=== PATIENT | male | born 1965 | race Caucasian/White ===

== ENCOUNTER 2022-07-29 15:47 | Outpatient (REF) | payer OTHER, SELFPAY ==
--- NOTE | ~2022-07-29 | XR_ITS ---
EXAMINATION: XR CHEST CLINICAL INFORMATION: Wall COMPARISON: Previous chest x-ray from 2016 TECHNIQUE: 2 views of the chest were obtained. FINDINGS: No significant abnormality is noted involving the heart, lungs, mediastinum, bony thorax or soft tissues. XR/XR chest 2V IMPRESSION: Unremarkable examination.
== END 2022-07-29 15:48 | disposition home or self-care (01) ==
LOC: HO.XRAY 15:47
PROVIDERS: PCP Nurse Practitioner Family; Visit Provider Nurse Practitioner Family
DX: R09.89 Other specified symptoms and signs involving the circulatory and respiratory systems (principal)
CPT/HCPCS: 71046

== ENCOUNTER 2025-05-19 07:21 | Day surgery (SDC) | payer BC, SELFPAY ==
--- OUTSIDE RECORDS SUMMARY | 2025-04-10 16:04 | XMS_ITS | Patient Health Record ---
Author Organization [facility] [place] Address [address] [place] [address] Care Team Providers Care Four H Club Agent Name Role Phone Bharti Merrill NP Primary Care Provider Brock Lopez Unavailable [phone] Reason For Referral No Information Medications Medication SIG (Take, Route, Fr equency, Duration) Notes Start Date End Date Status Medical From: . . . Work today, 03/30/18 03/30/2018 Active Social History Tobacco Use: Social History Observation Description Date Details (start date - stop date) Former Smoker NA - NA Tobacco Use/Smoking Question Answer Notes Are you a: former smoker When did you start smoking? smoked for 20 years Additional Findings: Tobacco User Heavy cigarett e smoker (20-39 cigs/day) Additional Findings: Tobacco Non-User Ex-heavy c igarette smoker (20-30/day) Alcohol Screen Question Answer Notes Did you have a drink containing alcohol in the p ast year? Yes Points 0 Interpretation Negative Tobacco use other than smoking: Question Answer Notes Are you an other tobacco user? No Problems Problem Type SNOMED Code ICD Code Onset Dates Problem Status W/U Status Risk Notes Problem Acquired hallux valgus (60783837) Hallux valgus (acquired), right foot (M20.11) Active confirmed Plan Of Treatment Pending Test Test Name Order Date , R2333-[id number]/INJECT, JOINT/BURSA 0 03/30/2018 Insurance Providers Payer Name Payer Address Payer Phone Subscriber Number Group Number Insured Name Patient Relationship to Insured Coverage Start Date Coverage End Date [facility] [employer] [address] [place] [address] [id number] Adarsh Marrero Self - patient is the insured Medical (General) History Surgical History Surgery Date(Month/Year) gall bladder 2013 Hospitalization History Reason Date(Month/Year) Josefina Ashford for kidney stones 8
--- OUTSIDE RECORDS SUMMARY | 2025-04-10 16:04 | XMS_ITS | Patient Health Record ---
Author Organization [facility] Address [address] [place] [address] Care Team Providers Care Ms Sql Server Developer Name Role Phone BARBARA MARTINS PA-C Primary Care Provider Bernardo Dickinson Jr Unavailable Allergies No Known Allergies Reason For Referral Referring Provider First Name Clifton Referring Provider Last Name Griselda Referring Provider Speciality Internal M edicine Referred Organization [facility] Referred Provider Bernardo Mena Jr Referred Address [address] [facility] [address],[place], [place],[address], Referred Provider Specialty Gastroentero logy General Notes Claudia Ford 2024 03:44:40 PM > requested an hmo blue referral from Dr Ibanez office for visit with Dr Mena on 04-03-25 for dx screening colon [phone], Claudia Ford 03/06/2025 01:36:49 PM >SPOKE WITH PT AND NOTIFIED HIM THAT HE NEEDS TO GET A NEW INSURANCE REFERRAL. THE PATIENT STATED HE NOW SEES BARBARA MARTINS HIS PCP Referral Priority Routine Medications Medication SIG (Take, Route, Frequency, Duration) Notes Start Date End Date Status Clopidogrel Bisulfate 75 MG TAKE ONE TAB LET BY MOUTH EVERY DAY Oral for 21 Days Active Aspir-Low 81 MG 1 tablet Orally Once a day Active Simvastatin 40 MG TAKE 1 TABLET BY LEISA TH NIGHTLY AT BEDTIME Oral for 60 Days Active Aspirin 325 MG TAKE ONE TABLET BY M OUTH EVERY DAY Oral for 30 Days Active Halobetasol Propionate 0.05 % APPLY THIN LAYER TWICE A DAY TO PSORIASIS ON LEGS FOR 2 WEEKS ON, 1 WEEK OFF; REPEAT NEEDED; USE IN CONJUNCTION WITH CALCIPOTRIENE. External for 30 Days Active Atorvastatin Calcium 40 MG Oral for 30 Days Active Metoprolol Tartrate 25 MG TAKE ONE TABLE T BY MOUTH TWICE A DAY Oral for 30 Days Active Calcipotriene 0.005 % APPLY TWO TIMES A DAY TO AFFECTED AREAS OF GROIN AND EXTREMITIES; USE IN CONJUNCTION WITH HALOBETASOL AND DURING BREAKS FROM HALOBETASOL External for 30 Days Active Magnesium 300 MG 1 capsule with a dominick l Orally Once a day for 30 day(s) Active Vitamin B12 500 MCG 1 tablet Orally Once a day for 30 day(s) Active Meloxicam 7.5 MG Oral for 30 Days Active Diclofenac Sodium 50 MG TAKE ONE TABLET BY MOUTH TWICE A DAY NEEDED FOR ARTHRITIC PAIN Oral for 15 Days Active Cholesterol Fighter Active Immunizations Vaccine Route Administration Date Status Comme nts Influenza Unknown 12/22/2019 Refused Influenza Unknown 04/03/2025 Refused Social History Tobacco Use: Social History Observation Description Date Details (start date - stop date) Never Smoker NA - NA Tobacco Use/Smoking Question Answer Notes Patient is a nonsmoker Alcohol Screen Question Answer Notes Did you have a drink contain ing alcohol in the past year? Yes How often did you have a dri nk containing alcohol in the past year? 2 to 3 times a week (3 points) How many drinks did you have on a typical day when you were drinking in the past year? 3 or 4 drinks (1 point) How often did you have 6 or more drinks on one occasion in the past year? Less than monthly (1 point) Points 5 Interpretation Positive Problems Problem Type SNOMED Code ICD Code Onset Dates Problem Status W/U Status Risk Notes Problem 050738657 Colon cancer screening (Z12.11) Active confirmed Problem 441615933 Encounter for other preprocedural examination (Z01.818) Active confirmed Problem 547816534 Long-term use of aspirin therapy (Z79.82) Active confirmed Vital Signs Temperature 97.7 degrees Fahrenheit 04/03/2025 Blood pressure diastolic 01 mm Hg 04/03/2025 Height 70 in 04/03/2025 Blood pressure systolic 001 mm Hg 04/03/2025 Weight 194.6 lbs 04/03/2025 BMI 27.92 kg/m2 04/03/2025 Encounters Encounter Location Date Provider Diagnosis [facility] [address] [facility] [address] [place] [address] 04/03/2025 Bernardo Mena Jr Colon cancer screening Z12.11 ; Encounter for other preprocedural examination Z01.818 and Long-term use of aspirin therapy Z79.82 [facility] [address] [place] [address] 02/28/2025 Bernardo Mena Jr Assessments Encounter Date Diagnosis (ICD Code) Assessment Notes Treatment Notes Treatment Clinical Notes Section Notes 04/03/2025 Colon cancer screening (ICD-10 - Z12.11) 04/03/2025 Encounter for other preprocedural examination (ICD-10 - Z01.818) 04/03/2025 Long-term use of aspirin therapy (ICD-10 - Z79.82) Plan Of Treatment Future Test Test Name Order Date COLONOSCOPY 12/22/2019 COLONOSCOPY 04/03/2025 Next Appt Details Provider Name:Bernardo frye Jr, 05/19/2025 09:10:00 AM, [address] [facility] , [place], [place], [phone], Insurance Providers Payer Name Payer Address Payer Phone Subscriber Number Group Number Insured Name Patient Relationship to Insured Coverage Start Date Coverage End Date [facility] [place] [employer] [address] [place] [address] [id number] RAKEL SHAH Self - patient is the insured Medical (General) History Medical History History ICD Code elevated cholesterol stroke small in december 2024 Surgical History Surgery Date(Month/Year) heart monitor 12/20 cholecystectomy
[2025-05-17 16:04] VITALS: BMI 27.7
--- NOTE | 2025-05-18 09:37 | P.CONAN_ITS ---
HPI - Anesthesia Eval Consult details Narrative: 60yo M for Colonoscopy [facility] Past Medical History Medical History (Updated 05/17/25 @ 16:03 by Sarai Wynn, RN) Implantable loop recorder present (03/03/25) History of CVA (cerebrovascular accident) Thoracic aortic aneurysm HLD (hyperlipidemia) Gall stones Back pain Arthritis Aortic regurgitation Surgical History Surgical History (Updated 05/17/25 @ 15:58 by Sarai Wynn, RN) Hx of cholecystectomy History of repair of anterior cruciate ligament of left knee Social History Social History (Updated 05/17/25 @ 16:02 by Sarai Wynn, QASIM) Patient Tobacco Use Status: Former Tobacco user Use of substances other than those prescribed or required for medical reasons: No Meds Allergies Allergy/AdvReac Type Severity Reaction Status Date / Time No Known Allergies (No Known Allergy Unverified 06/14/20 14:45 Allergies*) Home Medications ?Medication ?Instructions ?Recorded ?Confirmed ?Last Taken ?Type aspirin 81 mg tablet 81 mg PO DAILY 05/17/2504/29 Unknown History atorvastatin 40 mg tablet 40 mg PO DAILY 05/17/2504/29 Unknown History calcipotriene 0.005 % topical cream appl topical BID 0 05/17/25 Unknown History diclofenac sodium 3 % topical gel g topical BID Unknown History diclofenac sodium 50 mg 50 mg PO BID PRN arthritis 0 05/17/25 05/17/25 Unknown History tablet,delayed release halobetasol propionate 0.05 % appl topical 05/17/25 Unknown History topical cream Exam Height,Weight and Vital Signs: Height 5 ft 10 in Weight 87.5 kg
--- NOTE | 2025-05-18 09:37 | HO.ANESPROP2 ---
HPI - Anesthesia Eval Consult details Narrative: 60yo M for Colonoscopy [facility] Past Medical History Medical History Implantable loop recorder present (03/03/25) History of CVA (cerebrovascular accident) Thoracic aortic aneurysm HLD (hyperlipidemia) Gall stones Back pain Arthritis Aortic regurgitation Surgical History Surgical History Hx of cholecystectomy History of repair of anterior cruciate ligament of left knee Social History Social History Are you a primary wound care coordinator to a significant other at home: No Do you presently have visiting nurse or other home services: No Patient Tobacco Use Status: Former Tobacco user Use of substances other than those prescribed or required for medical reasons: No Have you been hit, kicked, punched, or otherwise hurt by someone within the past year? If so, by whom?: No Are you DNR?: No Advance Directives: No Advance Directives Information Provided: Yes Poor oral hygiene: No Meds Allergies Allergy/AdvReac Type Severity Reaction Status Date / Time No Known Allergies (No Known Allergy Verified 05/19/25 07:48 Allergies*) Home Medications ?Medication ?Instructions ?Recorded ?Confirmed ?Last Taken ?Type aspirin 81 mg tablet 81 mg PO DAILY 05/17/25 05/17/25 05/12/25 History atorvastatin 40 mg tablet 40 mg PO DAILY 05/17/25 05/17/25 Unknown History calcipotriene 0.005 % topical cream appl topical BID 05/17/25 Unknown History diclofenac sodium 3 % topical gel g topical BID 05/17/25 Unknown History diclofenac sodium 50 mg 50 mg PO BID PRN arthritis 05/17/25 05/17/25 Unknown History tablet,delayed release halobetasol propionate 0.05 % appl topical 05/17/25 05/17/25 Unknown History topical cream Exam Height,Weight and Vital Signs: Height 5 ft 10 in Weight 87.5 kg
[2025-05-19 07:47] VITALS: BMI 27.3
--- NOTE | 2025-05-19 07:58 | HO.ANESPROP2 ---
[facility] Past Medical History Medical History Implantable loop recorder present (03/03/25) History of CVA (cerebrovascular accident) Thoracic aortic aneurysm HLD (hyperlipidemia) Gall stones Back pain Arthritis Aortic regurgitation Functional capacity: independent ambulation Family History Family history of problems with anesthesia: No Surgical History Surgical History Hx of cholecystectomy History of repair of anterior cruciate ligament of left knee History of Problems with Anesthesia: No Social History Social History Are you a primary child care associate teacher to a significant other at home: No Do you presently have visiting nurse or other home services: No Patient Tobacco Use Status: Former Tobacco user Use of substances other than those prescribed or required for medical reasons: No Have you been hit, kicked, punched, or otherwise hurt by someone within the past year? If so, by whom?: No Are you DNR?: No Advance Directives: No Advance Directives Information Provided: Yes Poor oral hygiene: No Meds Allergies Allergy/AdvReac Type Severity Reaction Status Date / Time No Known Allergies (No Known Allergy Verified 05/19/25 07:48 Allergies*) Home Medications ?Medication ?Instructions ?Recorded ?Confirmed ?Last Taken ?Type aspirin 81 mg tablet 81 mg PO DAILY 05/17/25 05/17/25 05/12/25 History atorvastatin 40 mg tablet 40 mg PO DAILY 05/17/25 05/17/25 Unknown History calcipotriene 0.005 % topical cream appl topical BID 05/17/25 Unknown History diclofenac sodium 3 % topical gel g topical BID 05/17/25 Unknown History diclofenac sodium 50 mg 50 mg PO BID PRN arthritis 05/17/25 05/17/25 Unknown History tablet,delayed release halobetasol propionate 0.05 % appl topical 05/17/25 05/17/25 Unknown History topical cream Exam Height,Weight and Vital Signs: Height 5 ft 10 in Weight 86.183 kg Airway Mallampati Class: II TM Dist: >3cm Neck ROM: Full Heart: RRR Lungs: CTA Assessment and Plan Assessment Anesthesia Assessment: Anesthesia Plan Discussed Final Anesthetic Review Family History of Problems with Anesthesia: No History of Problems with Anesthesia: No NPO: Yes ASA Class: III Final Preanesthetic Review: Meds/Allgs Chart Reviewed, Consent Obtained/Reviewed and Anes Risks/Benef Reviewed Patient Risk: Intermediate Procedure Risk: Low Anesthetic Plan Anesthetic Plan: MAC: Disposition: Standard PACU
[2025-05-19 07:59] VITALS: BP 125/87; PULSE 73; RESP 18; TEMP 36.6; O2SAT 98
[2025-05-19] MEDS: Lactated Ringers 1,000 ML 80 ML IVCONT (08:00)
--- NOTE | 2025-05-19 08:41 | MHC.SHP ---
Pre-Procedural Eval Section A - 24 Hr Update-Section A only Date of Service: 05/19/25 The patient is an INPATIENT: No Changes since office visit: No Cold of Flu in the past 2 weeks, No New Medical Problems, No Changes in Medication and No Patient answered all questions The patient has been examined within 24 hours of the surgical procedure. The History & Physical has been completed within 30 days and I have reviewed it.: Yes Section B - Complete if H&P > 30 days Chief Complaint: screening Allergies: Allergies Allergy/AdvReac Type Severity Reaction Status Date / Time No Known Allergies (No Known Allergy Verified 05/19/25 07:48 Allergies*) Plan I have reviewed the history and physical and performed a pertinent physical examination on my patient. No changes have occurred unless specified. Time Spent With Patient Time: Total time managing care of this patient today ____ minutes.
[2025-05-19 09:06] VITALS: BP 108/72; PULSE 82; RESP 16; TEMP 36.6; O2SAT 96
--- NOTE | 2025-05-19 09:11 | PM.OP ---
Brief Operative Note Date of Service: 05/19/25 Pre-op diagnosis: screening Post-op diagnosis: same Procedure: colonoscopy Surgeon: Bernardo Mena MD Anesthesia: MAC Was an Adobe Cq Developer used for this Procedure?: No Estimated blood loss (mL): 0 Pathology: none sent Condition: stable Disposition: PACU
[2025-05-19 09:20] VITALS: BP 118/79; PULSE 65; RESP 16; O2SAT 96
[2025-05-19 09:35] VITALS: BP 115/86; PULSE 69; RESP 16; TEMP 36.2; O2SAT 99
--- NOTE | 2025-05-19 10:50 | OP_ITS ---
DATE OF SERVICE: 05/19/2025 SURGEON: Bernardo Mena MD INDICATIONS: Colon cancer screening. PREOPERATIVE DIAGNOSIS: POSTOPERATIVE DIAGNOSIS: PROCEDURE PERFORMED: Colonoscopy to the terminal ileum. ESTIMATED BLOOD LOSS: COMPLICATIONS: ANESTHESIA: ASSISTANTS: SPECIMENS: MEDICATIONS: Monitored anesthesia care. DESCRIPTION OF PROCEDURE: A history and physical were performed. The risks and benefits of the procedure were explained to the patient and informed consent was obtained. The patient was placed in the left lateral decubitus position. A digital rectal exam was performed and was found to be normal. The Olympus pediatric video colonoscope was introduced into the rectum and advanced to the cecum. The cecum was identified by transillumination, palpation, and identification of ileocecal valve. Examination was performed. The scope was removed. He tolerated the procedure well and was transferred to the recovery room in stable condition. FINDINGS: The terminal ileum was examined and appeared normal. The visualized colonic mucosa was within normal limits without evidence of masses or ulcers. No polyps were identified. Retroflexed examination showed some small internal hemorrhoids. The quality of prep was good. IMPRESSION: Normal colonoscopy. RECOMMENDATIONS: 1. Follow up as needed. 2. Repeat colonoscopy is recommended in 5 years for family history of colon cancer. MD NIMESH Saxena/MELLISSA / [id number]
== END 2025-05-19 10:02 | disposition home or self-care (01) ==
PROVIDERS: Visit Provider Internal Medicine Gastroenterology
PROC: 0DJD8ZZ Inspection of Lower Intestinal Tract, Via Natural or Artificial Opening Endoscopic (ICD-10-PCS; CPT 45378; principal; 2025-05-19 09:10)
DX: Z12.11 Encounter for screening for malignant neoplasm of colon (principal); Z80.0 Family history of malignant neoplasm of digestive organs; Z86.0101 Personal history of adenomatous and serrated colon polyps; K64.8 Other hemorrhoids; E78.00 Pure hypercholesterolemia, unspecified; Z86.73 Personal history of transient ischemic attack (TIA), and cerebral infarction without residual deficits; I71.21 Aneurysm of the ascending aorta, without rupture; Z79.82 Long term (current) use of aspirin; Z79.899 Other long term (current) drug therapy; Z90.49 Acquired absence of other specified parts of digestive tract; Z87.891 Personal history of nicotine dependence; Z98.890 Other specified postprocedural states
CPT/HCPCS: 45378; J2003; J2704

== ENCOUNTER 2025-08-29 06:23 | Outpatient (REF) | payer BC, SELFPAY ==
--- OUTSIDE RECORDS SUMMARY | 2025-08-29 06:30 | XMS_ITS | Encounter Summary ---
Author Organization [facility] Address [address] [facility] [place] [address] Phone Care Team Providers Care Sustainability Coach Name Role Phone Jaspreet Hoover MD Unavailable Candace Dietrich NP Unavailable [phone] Bharti Merrill PELLET PREPARATION OPERATOR Unavailable [phone] Adarsh Ruiz MD Unavailable Bharti Merrill PELLET PREPARATION OPERATOR Primary Care Provider Bernardo Mena MD Unavailable Abby Mcgraw MANAGER ANALYTICAL Primary Care Provider Armida Linares MD Unavailable Valerie Lane PA-C Primary Care Provider Clifton Villalobos MD Unavailable Encounter Details Date Type Department Care Team (Late st Contact Info) Description 02/13/2018 Procedure [facility], Ct Scan - [address] [address] Social History Tobacco Use Types Packs/Day Years Used Date Smoking Tobacco: Former Cigarettes 2 15 0 04/28/1983 - 04/28/1998 Smokeless Tobacco: Never Alcohol Use Standard Drinks/Week Comments Yes 0 (1 standard drink = 0.6 oz pur e alcohol) 24 beers per week at times Sex and Gender Information Value Date Recorded Sex Assigned at Male 02/13/2018 2:37 PM EDT Legal Sex Male 9:41 PM EDT Gender Identity Male 02/13/2018 2:37 PM EDT Sexual Orientation Straight 02/13/2018 2: 37 PM EDT documented as of this encounter Plan of Treatment Upcoming Encounters Date Type Department Care Team (Late st Contact Info) Description 09/06/2025 8:20 AM EST Office Visit [facility] [address] [facility] 3rd Floor, [address] [place] [address] Ej Hopson MD [address] [facility], [address] [address] 12/15/2025 8:00 AM EDT Office Visit [facility] [address] [place] [address] PA-C [address] [place] [address] documented as of this encounter Visit Diagnoses Not on filedocumented in this encounter Additional Health Concerns Assessment Noted Time PHQ-2 Depression Total Score: 0 02/09/20 18 2:28 PM EDT documented as of this encounter Care Teams Sustainability Coach Relationship Specialty Start Date End Date Bharti Merrill NP [address] [place] [address] PCP - General Family Medicine 02/12/18 12/01/23 Abby Mcgraw FNP [address] [facility] [address] [place] [address] PCP - General Nurse Practitioner 12/02/23 11/20/[address] PA-C [address] [place] [address] PCP - General Physician Shop Firer/Fireman 11/21/24 Jaspreet Hoover MD [address] [place] [address] Historical LMR Provider 07/16/17 04/04/20 Candace Dietrich, SYDNIE [address] [facility] [address] [place] [address] Historical LMR Provider 07/16/17 0 Bharti Merrill NP [address] [facility] [address] [place] [address] Historical LMR Provider 07/16/17 04/04/20 Adarsh Ruiz MD [address] [place] [address] Historical LMR Provider 07/16/17 0 Bernardo Mena MD [address] [place] [address] [address] [place] [phone] Internal Medicine 04/05/20 Armida Linares MD [address] [facility] [address] [place] [address] Insurance Assigned Provider 08/06/24 05/06/25 Clifton Villalobos MD [address] [place] [address] Insurance Assigned Provider 05/06/25 documented as of this encounter Additional Source Comments The information contained in this document represents components of the legal health record. It is not the complete legal health record.[facility]
--- OUTSIDE RECORDS SUMMARY | 2025-08-29 06:30 | XMS_ITS | Encounter Summary ---
Author Organization [facility] Address [address] [place] [address] Phone Care Team Providers Care Brush Polisher Name Role Phone Bernardo Mena MD Unavailable Abby Mcgraw Primary Care Provider Armida Linares MD Unavailable Valerie Lane PA-C Primary Care Provider [phone] Clifton Villalobos MD Unavailable Reason for Referral * Consultation (Routine) - New Request Specialty Diagnoses / Procedures Referred By Johny lema Referred To Contact Diagnoses Low back pain Lulu Gray, SYDNIE Phone: tel: fax: [email or web address] Referral ID Status Reason Start Date Expiration Date V isits Requested Visits Authorized [id number] New Request 10/14/2024 10/14/2025 1 1 Reason for Visit * Reason Onset Date Comments Triage 10/14/2024 Back pain Encounter Details Date Type Department Care Team (Late st Contact Info) Description 10/14/2024 Nurse Triage [facility] [address] [place] [address] Abby Mcgraw FNP [address] [place], [place] [phone] Triage (Back pain) Social History Tobacco Use Types Packs/Day Years Used Date Smoking Tobacco: Former Cigarettes 2 15 0 04/28/1983 - 04/28/1998 Smokeless Tobacco: Never Alcohol Use Standard Drinks/Week Comments Yes 14 (1 standard drink = 0.6 oz pu re alcohol) 14 beers per week Child or Family Care Answer Date Record ed Do you have problems with on e of the following making it difficult for you to work, study, or receive health care? No 03/08/2024 Education Answer Date Recorded Are you interested in help w ith more adult education (for example, completing high school, GED, job training, learning the [place] language, technical skills, or developing parenting skills)? No 03/08/2024 Are you concerned about learning? Not on file 03/08/2024 No 03/08/2024 Yes 03/08/2024 Food Answer Date Recorded Within the past 6 months we worried whether our food would run out before we got money to buy more. Never True 03/08/2024 Within the past 6 months the food we bought just didn't last and we didn't have enough money to get more. Never True Residential Stability Answer Date Recor ded What is your housing situation today? I choose n ot to answer 03/08/2024 How many times have you move d in the past 12 months? Zero (I did not move) 03/08/2024 Paying for Meds Answer Date Recorded Do you have trouble paying for medicines? No 03/08/2024 Paying Utility Bills Answer Date Record ed Do you have trouble paying your heating or elect ricity bill? No 03/08/2024 Transportation Answer Date Recorded Has the lack of transportati on kept you from medical appointments or from getting medications? No 03/08/2024 Unemployment Answer Date Recorded Are you currently unemployed or working on a part-time or temporary basis, and looking for work? I choose not to answer 07/18/2022 Digital Access Answer Date Recorded No 03/08/2024 Yes 03/08/2024 Do you have reliable internet access at home? I choose not to answer 03/08/2024 Do you have a device (e.g., phone, tablet, computer) with a working camera? Yes 03/08/2024 Intimate Partner Violence Answer Date R ecorded Are you denied basic needs s uch as food, clothing, or medical care? No 07/28/2024 In the past 12 months have y ou been in a relationship with a person who hurts, threatens, or tries to control you? No 07/28/2024 Are you denied basic needs s uch as food, clothing, or medical care? No 07/28/2024 In the past 12 months have y ou been in a relationship with a person who hurts, threatens, or tries to control you? No 07/28/2024 Sex and Gender Information Value Date Recorded Sex Assigned at Male 02/13/2018 2:37 PM EDT Legal Sex Male 9:41 PM EDT Gender Identity Male 02/13/2018 2:37 PM EDT Sexual Orientation Straight 02/13/2018 2: 37 PM EDT documented as of this encounter Progress Notes * Radha Contreras RN - 10/14/2024 10:47 AM EST Adrian;led and spoke to pt. States there was no injury. 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 Pt was seen yesterday by SYDNIE Gray for this and is looking for a referral. Pended for review and signature as appropriate. To [employer] Marina * Magda Mederos - 10/14/2024 10:38 AM EST [facility] PEN Top Smart Phrases: Yellow Call Intake Call Back Number: (if not patient, name/relationship) [phone] Yellow Symptom: Back pain When did these symptoms start? Thursday Have you ever experienced these symptoms before? YES Any additional information: Reoccuring issue arthritis in spine.asking about referral to speacilist Route Normal Priority Encounter to health club manager Reason for Call = TRIAGE Comment = YELLOW + symptom Scripting: We're creating a note and routing it to your care team. They will contact you as soon as possible. If your symptoms worsen or change before your visit, please call back. documented in this encounter Plan of Treatment Upcoming Encounters Date Type Department Care Team (Late st Contact Info) Description 09/06/2025 8:20 AM EST Office Visit [facility] [address], [address] [place] [address] Ej Hopson MD [address], [address] [place] [address] [email or web address] 12/15/2025 8:00 AM EDT Office Visit [facility] Internal Medicine [address] [place], [place] [phone] Valerie Lane PA-C [address] [place] [address] [email or web address] Scheduled Referrals Name Type Priority Associated Diagnoses Order Schedule Ambulatory referral to [facility] - Employed Practices Outpatient Referral Routine Low back pain Ordered: 10/14/2024 documented as of this encounter Visit Diagnoses Diagnosis Low back pain- Primary Lumbago documented in this encounter Additional Health Concerns Assessment Noted Time PHQ-2 Depression Total Score: 0 07/28/20 24 3:36 PM EDT documented as of this encounter Care Teams Brush Polisher Relationship Specialty Start Date End Date Abby Mcgraw FNP [address] [place] [address] PCP - General Nurse Practitioner 12/02/23 11/20/[address] PA-C [address] [place] [address] PCP - General Physician Bone Grinder 11/21/24 Bernardo Mena MD [address] [place] [address] [address] [place] [phone] Internal Medicine 04/05/20 Armida Linares MD [address] [place] [id number] [email or web address] Insurance Assigned Provider 08/06/24 05/06/25 Clifton Villalobos MD [address] [place] [id number] [email or web address] Insurance Assigned Provider 05/06/25 documented as of this encounter Additional Source Comments The information contained in this document represents components of the legal health record. It is not the complete legal health record.[facility]
--- OUTSIDE RECORDS SUMMARY | 2025-08-29 06:30 | XMS_ITS | Clinical Summary ---
Author Organization [facility] Address [address] [address] Phone Care Team Providers Care Landscape Painter Name Role Phone Bernardo Mena MD Unavailable [phone] PA-C Primary Care Provider Clifton Villalobos MD Unavailable Allergies No known active allergies Medications diclofenac sodium (SOLARAZE) 3 % Gel Apply topically 2 (two) times a day. 100 g 12/28/19 25 Active aspirin 81 MG EC tablet Take 81 mg by mouth daily. Active calcipotriene (DOVONEX) 0.005 % cream APPLY TOPICALLY TWICE A DAY. 60 g 02/08/20 25 Active halobetasol (ULTRAVATE) 0.05 % cream APPLY THIN LAYER TWICE A DAY TO PSORIASIS ON LEGS FOR 2 WEEKS ON, 1 WEEK OFF; REPEAT NEEDED; USE IN CONJUNCTION WITH CALCIPOTRIENE. 03/06/20 25 Active diclofenac sodium (VOLTAREN) 50 MG EC tablet TAKE ONE TABLET BY MOUTH TWICE A DAY NEEDED FOR ARTHRITIC PAIN 30 tablet 04/17/20 25 Active rosuvastatin (CRESTOR) 20 MG tabletIndications: Other hyperlipidemia Take 1 tablet (20 mg total) by mouth daily. 30 tablet 2 06/29/20 25 Active Active Problems Problem Noted Date Diagnosed Date Bilateral hearing loss due to cerumen impaction 03/27/2025 Assessment & Plan (03/27/2025 4:57 PM EDT): The patient has bilateral earwax impaction with reduced hearing, he was amenable to having the earwax removed. Using water with hydroperoxide mixed a irrigation and device used to remove the earwax and then a curette lighted was used to extract and loosen up the wax without deep insertion. The patient tolerated the procedure well both ears were done approximately 50 actuations both ears left side required more than the other than the procedure extended beyond the 15 minutes was a total of 30 minutes for the visit to complete. At the end of the visit the wax was completely extracted and the patient's hearing improved. He can apply 5 drops of hydroperoxide to each ear and let sit for 20 minutes at a time for about 3 days do this daily and then take the pipette bulb to remove the wax/peroxide solution, then repeat once every other week to dissolve any wax buildup. Patient feels encouraged. Thoracic aortic aneurysm without rupture 025 Assessment & Plan (03/10/2025 9:15 AM EDT): Patient found to have an aneurysm measuring 4.4 cm. He will have a repeat echo in June 2024. Will have him follow-up after imaging. Implantable loop recorder present 03/10/2025 Assessment & Plan (03/10/2025 9:16 AM EDT): Device interrogated today. Battery status is good. R wave amplitude at 0.52 mV. No episodes noted. No parameter changes. Incision looks well-healed. Closure device still intact. Instructed patient to leave closure device and it will come off in about 7 to 10 days. Mild healing ecchymosis present today. Plan: Continue remote checks Follow-up in 6 months Pain and swelling of left knee 01/25/2025 Assessment & Plan (01/25/2025 4:58 PM EDT): Patient presenting today with 1 day of left knee swelling and redness. On exam there was erythema, swelling, and warmth to the left anterior superior portion of the knee without any palpable tenderness. Range of motion, sensation, strength intact. Differential includes septic joint versus bursitis, with bursitis being more likely due to his recent kneeling activity. However cannot rule out septic joint. He is advised to avoid continuous kneeling to prevent further inflammation. Advised that he can use his diclofenac gel for pain management if necessary while oral diclofenac not recommended due to his current use of Plavix. In order to cover for septic joint, will initiate Keflex 500 mg 3 times daily x 7 days. Common side effects including GI upset were discussed, advised to initiate probiotic. Will place a urgent referral to [facility] for further evaluation and potential aspiration of the knee. Also advised about orthopedic walk-in clinics to further assess. Denies any trauma or injury to the knee. Arthritis 12/13/2024 Scrotal pain 03/24/2022 Assessment & Plan (03/24/2022 2:09 PM EDT): Most likely it would be epididymitis. But a occult hernia is possible although the exam was not remarkable for such. Also possible is a impingement of the left L1 or L2 nerve root but I would expect some more pain in the leg and groin on the anterior aspect. As such lets obtain an ultrasound of the left testicle. He is not having issue with urination but I will obtain a urinalysis to see if there is any sign of infection. If there is I will treat then immediately otherwise I will await the results of the ultrasound. The ultrasound comes back negative and the pain persists or worsens and I will probably refer him to urology. Or have him come back. Other hyperlipidemia 01/04/2021 Assessment & Plan (08/01/2024 9:22 AM EST): Lipid panel as ordered. He continues to take simvastatin 40 mg and does note some improvement in side effects from switch to moderate intensity statin. Assessment & Plan (03/09/2024 11:45 AM EDT): ASCVD risk score discussed with patient. Reports inconsistent use with Lipitor given concern for intolerable side effects. We discussed alternative statin medications. He has previously failed treatment with high intensity statins and we discussed moderate intensity has many medications that he is able to tolerate is important for consistent use. Potential risk, benefits, side effects of simvastatin discussed medication was prescribed. He will contact the office with any additional concerns. Repeat lipid panel and physical exam scheduled in June. Chronic right shoulder pain 10/13/2019 Impaired glucose tolerance (oral) 10/13/2019 Assessment & Plan (03/09/2024 11:43 AM EDT): Latest hemoglobin A1C within the normal range. Low back pain 11/26/2017 Assessment & Plan (12/27/2024 5:00 PM EDT): He has requested a refill of his diclofenac tablet prescription for back pain management. He reports that Tylenol does not provide relief for his back pain. He has previously tried lidocaine patches without success. Given his current cardiac issues and the fact that he is on Plavix, it is not advisable to continue with diclofenac sodium at this time. This decision can be reassessed after the completion of his Plavix course. In the interim, we will prescribe diclofenac gel for more localized pain management. Assessment & Plan (10/13/2024 2:40 PM EST): POC urine dipstick to evaluate for occult blood was negative. I believe this is muscular in nature as the pain is reproducible. Discussed side effects of muscle relaxants to which he was amenable. Continue supportive care including hip belt, Advil, and heat. Advised to notify the office if his symptoms persist or worsen, or if he develops paresthesias. Orders: POCT Urine dipstick Assessment & Plan (03/09/2024 11:43 AM EDT): Discussed medication options for degenerative changes and arthritis including NSAIDs. Discussed discontinuation of Voltaren given intolerable side effects. We will trial meloxicam once daily as needed for pain. Reviewed potential risk, benefits, side effects. Overweight 11/26/2017 Vertigo 11/26/2017 Psoriasis 11/26/2017 Assessment & Plan (08/01/2024 9:23 AM EST): Referral placed to dermatology for consideration of systemic treatment for psoriasis as he notes significant worsening. He also reports concern for polyarthralgia and wonders about inflammatory arthritis given diagnosis of psoriasis. Cerebrovascular accident (CV A) due to thrombosis of left anterior cerebral artery 11/26/2017 Assessment & Plan (03/10/2025 9:14 AM EDT): Patient wore a MCT which had 22 days worth of analysis. It showed 1 possible atrial episode lasting 5 seconds. The overall burden was less than 1%. Upon review by a physician and another nurse practitioner, there was some question that it was not atrial fibrillation. Given the recent CVA and the possibility of atrial fibrillation, patient underwent an implant of an Moreno ILR on 03/03/2025. No episodes noted on device. Plan: Follow-up in 6 months Assessment & Plan (01/31/2025 8:29 AM EDT): Patient wore a MCT which had 22 days worth of analysis. It showed 1 possible atrial episode lasting 5 seconds. The overall burden was less than 1%. Upon review by a physician and another nurse practitioner, there was some question that it was not atrial fibrillation. Given the recent CVA and the possibility of atrial fibrillation, we will move forward with implanting an ILR. I discussed the risks and benefits which include bleeding and infection. Patient verbalized understanding of this information. He is currently feeling well from a cardiac standpoint but does note some fatigue since his CVA. Patient consents to moving forward with ILR. Plan: Schedule ILR implant Follow-up as scheduled on 05/08/25 Assessment & Plan (12/27/2024 4:59 PM EDT): The recent stroke is likely attributable to cholesterol-related factors rather than atrial fibrillation, given the absence of any history of atrial fibrillation and the presence of a normal heart rate and rhythm. The carotid ultrasound results were within normal limits, with no evidence of stenosis or arterial stiffening. However, the echocardiogram revealed a thoracic aortic aneurysm measuring 4.4 cm. His LDL levels have been elevated in the past, but have shown improvement with medication. The current goal is to maintain an LDL level below 70. He is currently wearing a Holter monitor to further investigate the possibility of atrial fibrillation. He will continue his aspirin regimen at a dosage of 325 mg indefinitely. The simvastatin will be replaced with atorvastatin 40 mg, to be taken at night as he needs to be on a high intensity statin. He currently is on Plavix for a duration of 21 days. A referral to [facility] has been made for further evaluation of the thoracic aortic aneurysm as well as cardiac risk. An exercise stress test has been ordered to assess his cardiac function as he has a history of stable angina. He has been advised to engage in low-intensity exercises and to monitor for any symptoms such as chest pain or stroke-like symptoms. He is cleared to work as he has no residual symptoms and is currently on the appropriate medication regimen. Assessment & Plan (12/16/2024 10:26 AM EDT): The symptoms could potentially be indicative of a stroke, although this is less likely given his current statin therapy without other associated neurological symptoms. The possibility of a pinched nerve extending down the arm can not be ruled out. The symptoms could also suggest cubital tunnel syndrome, characterized by nerve entrapment in the elbow leading to pain, weakness, and numbness down the arm. Although unlikely to be a stroke as he is neurologically intact, will obtain a CT head urgently to rule out stroke. Discussed ER protocol including but not limited to facial droop, complete weakness/numbness of the upper extremity or lower extremity, dysarthria, impaired coordination. More likely in the setting of nerve impingement, will obtain right elbow and wrist x-ray to assess for any bony abnormalities. If all imaging negative, will refer to [facility] orthopedics. Patient notes understanding and is appreciated. Encounters Date Type Department Care Team Description 07/07/2025 7:17 AM EDT - 07/07/2025 11:59 PM EDT Hospital Encounter Echo Lab [address] [place] [address] Ej Hopson MD Discharge Disposition: Home or Self Care 06/28/2025 Telephone [facility] [address] [place] [address] PA-C Change cholesterol medication 01/06/2025 Procedure Pass Echo Lab [address] [place] [address] from Last 3 Months Immunizations Immunization Administration Dates Next Due COVID-19 (Pre-07/20) Antoine Vaccine, [id number], P F 03/14/2021 Tdap 07/06/2019 Family History Medical History Relation Comments No Known Problems Brother 1 No Known Problems Brother 2 No Known Problems Brother 3 Diabetes Brother 4 No Known Problems Daughter Colon cancer Father at 77 Heart disease Father Other Father Aorta issue No Known Problems Mother Psoriasis Sister 1 No Known Problems Sister 2 No Known Problems Son Relation Status Comments Brother 1 Alive Brother 2 Alive Brother 3 Alive Brother 4 Daughter Alive Father Mother Alive Sister 1 Alive Sister 2 Alive Son Alive Social History Tobacco Use Types Packs/Day Years [...] high school, GED, job training, learning the [place] language, technical skills, or developing parenting skills)? [...] as food, clothing, or medical care? No 12/13/2024 In the past 12 months have y ou been in a relationship with a person who hurts, threatens, or tries to control you? No 12/13/2024 Are you denied basic needs s uch as food, clothing, or medical care? No 12/13/2024 In the past 12 months have y ou been in a relationship with a person who hurts, threatens, or tries to control you? No 12/13/2024 Sex and Gender Information Value Date Recorded Sex Assigned at Male 02/13/2018 2:37 PM EDT Legal Sex Male 9:41 PM EDT Gender Identity Male 02/13/2018 2:37 PM EDT Sexual Orientation Straight 02/13/2018 2: 37 PM EDT Last Filed Vital Signs Vital Sign Reading Time Taken Comments Blood Pressure 122/82 03/27/2025 4:24 PM EDT Pulse 80 03/27/2025 4:24 PM EDT Temperature 36.4 C (97.6 F) 03/27/2025 4:24 PM EDT Respiratory Rate 14 03/27/2025 4:24 PM EDT Oxygen Saturation 97% 03/27/2025 4:24 PM EDT Inhaled Oxygen Concentration - - Weight 86.1 kg (189 lb 12.8 oz) 03/27/2025 4:24 PM EDT Height 177.8 cm (5' 10 ) 03/27/2025 4:24 PM EDT Body Mass Index 27.23 03/27/2025 4:24 PM EDT Plan of Treatment Upcoming Encounters Date Type Department Care Team (Late st Contact Info) Description 09/06/2025 8:20 AM EST Office Visit [facility] [address] [place] [address] [address] Floor, [address] [place] [address] Ej Hopson MD [address] [facility], [address] [place] [id number] 12/15/2025 8:00 AM EDT Office Visit [facility] [address] [place] [address] PA-C [address] [place] [address] [email or web address] Health Maintenance Due Date Last Done Comments PNEUMOCOCCAL VACCINES (50+ years) (1 of 2 - PCV) 1984 COLOGUARD 2010 FIT TEST 2010 FOBT 2010 SIGMOIDOSCOPY 2010 VIRTUAL COLONOSCOPY 2010 RSV VACCINE (1 - Risk 50-74 years 1-dose series) 2015 ZOSTER VACCINES (1 of 2) 2015 COLONOSCOPY 04/05/2025 04/05/2020 COLORECTAL CANCER SCREENING 04/05/2025 INFLUENZA VACCINE (#1) 2025 COVID-19 VACCINE (2 - 2024-2 6 season) 2025 03/14/2021 DEPRESSION SCREENING 12/13/2025 12/13/2024 SCREENING FOR DIABETES 12/24/2027 , 12/23/2024 Adult Td,Tdap Booster 07/06/2029 07/06/2019 HEPATITIS C SCREENING Completed 09/16/2015 HIV ONE-TIME SCREENING (18-6 5 YEARS) Completed 10/06/2019 SMOKING STATUS SCREENING (On ce After 26 Yrs) Completed 03/27/2025 HEPATITIS A VACCINES Aged Out No long er eligible based on patient's age to complete this topic HIB VACCINES Aged Out No longer eligi ble based on patient's age to complete this topic MENINGOCOCCAL VACCINES (ACWY) Aged Out No longer eligible based on patient's age to complete this topic MENINGOCOCCAL VACCINES (B) Aged Out N o longer eligible based on patient's age to complete this topic Medical Devices Not on file Procedures Procedure Name Priority Date/Time Associated Diagnosis Comments TTE COMPREHENSIVE Routine 07/07/2025 8:1 3 AM EDT Coronary artery disease involving [place] coronary artery of [place] heart without angina pectoris COLONOSCOPY FOR RESULT ENTRY ONLY Routine 04/05/2020 OUTSIDE HEPATITIS C VIRUS SCREENING Routine 09/16/2015 from Last 3 Months or Most Recently Relevant to Health Maintenance Results * TTE COMPREHENSIVE (07/07/2025 8:13 AM EDT) Height 178 cm Weight 86 kg Interventricular Septum Thickness 10 6 - 11 mm Left Ventricle Internal Diameter End Diastole 59 42 - 58 mm Left Ventricle Internal Diameter End Systole 35 <40 mm Left Ventricular Outflow Tract Diameter 22.0 mm Left Ventricular Posterior Wall Thickness 11 6 - 11 mm Left Ventricle Ea Lateral Wave Speed 11.6 cm/s Left Ventricle Ea Septal Wave Speed 10.2 cm/s Ejection Fraction 80 50 - 75 Percent Left Atrium Dimension Anterior-Posterior 46 15 - 40 mm Aortic Valve Mean Gradient 5 mmHg Aortic Valve Time Velocity Integral 318.0 mm Aortic Valve Peak Velocity 1.5 m/s Aortic Valve Peak Gradient 9 mmHg Aortic Arch Diameter 30 mm Aortic Sinus Diameter 44 <40 mm Ascending Aorta Diameter 46 <36 mm Inferior Vena Cava Diameter 17 <21 mm Mitral Valve Deceleration Time 187 ms Left Ventricle A Wave Speed 63.8 cm/s Left Ventricle E Wave Speed 77.1 cm/s Pulmonary Valve Peak Velocity 1.0 m/s Pulmonary Valve Peak Gradient 4 mmHg Right Ventricle Basal Diameter 39 25 - 41 mm Tricuspid Valve Peak Velocity 2.3 m/s Raw LV EF% 65 % MV E/E' Tissue Velocity Lateral 6.65 Relative Wall Thickness 0.37 0.22 - 0.42 MV E/A ratio 1.2 MV E/e' septal 7.56 Left Ventricle E/e' Average 7.1 Aortic Valve Prosthetic Peak Gradient 9 mmHg Aortic Valve Prosthetic Mean Gradient 5 mmHg Aorta Sinus Index by Height 2.47 cm/m Aorta Sinus CSA index by Height 8.54 cm2/m Asc Aorta CSA Index by Height 9.33 cm2/m Right Ventricle to Right Atrium Pressure Gradient 21 mmHg Right Ventricle Peak Systolic Pressure (Assuming RAP 10) 31 mmHg MGB CV ECHO TV RVSP (ASSUMING RAP OF 5) 26 mmHg RVSP (Exclusive of RAP) 21 mmHg Pulmonic Valve Prosthetic Peak Gradient 4 mmHg Echo E/Ea 7.56 Body Surface Area 2.04 m2 Left Ventricle indexed to BSA 125.3 g/m2 Left Ventricular Outflow Tract Velocity 1.1 m/s LVOT VTI REST 22.0 cm Aortic Valve Sinus Index by BSA 22 mm/m2 Ascending Aorta Index 23 mm/m2 MGB CV AV DIMENSIONLESS INDEX (PEAK) - STRESS ECHO DOBUT - REST 0.73 Ascending Aorta Index 23 mm Aortic Sinus Index 22 mm Ascending Aorta Diameter 23 mm Aortic Valve Sinus Index 1 22 20 - 32 mm AO ASC DIAM BSA INDEX 22.55 Anatomical Region Laterality Modality Heart Ultrasound Narrative 07/07/2025 10:41 AM EDT Images from the original result were not included. Normal left ventricular size and systolic function. Estimated ejection fraction 55 to 60%. Normal diastolic parameters for age. Normal right ventricular size and function. Left atrium visually appears minimally dilated. Trileaflet aortic valve with mild to moderate aortic regurgitation with no evidence of significant aortic stenosis. No other significant valvular abnormalities. Normal estimated PA systolic pressure. The ascending aorta appears more dilated at 4.6 cm. Aortic root is stable at 4.4 cm. Compared to prior study dated November 2024, the ascending aortic aneurysm size is mildly increased. Recommend thoracic CTA if clinically indicated. Left Ventricle The left ventricle is normal in size. There is mild concentric hypertrophy. There is normal left ventricular systolic function. The LV ejection fraction is 55-60% (visually estimated). LV diastolic function appears within normal limits for age. Right Ventricle The right ventricle is normal in size. There is normal right ventricular systolic function. Left Atrium The left atrium is normal in size. Right Atrium The right atrium is normal in size. The IVC is normal in size with normal inspiratory collapse. Mitral Valve The mitral valve appears normal. There is no mitral stenosis. There is trace mitral regurgitation. Tricuspid Valve The tricuspid valve appears normal. There is no tricuspid stenosis. There is trace tricuspid regurgitation. Aortic Valve The aortic valve is tricuspid. There is no aortic stenosis. The aortic valve peak velocity is 1.5 m/s. The peak and mean aortic valve gradients are 9 mmHg and 5 mmHg respectively. There is mild to moderate aortic regurgitation. The aortic sinuses are dilated. The ascending aorta is dilated. Pulmonic Valve The pulmonic valve appears normal. There is no pulmonic stenosis. There is trace pulmonic regurgitation. Pericardium There is no pericardial effusion. General Findings The image quality was fair (3). Technique(s) used in the evaluation: Multiplane, Color flow Doppler, Spectral Doppler and Epiaortic scan. Comparison Findings Compared to prior TTE report on 12/23/2024, IAS/IVS The interatrial septum appears normal. There is no evidence of patent foramen ovale (PFO). The interventricular septum appears normal. Ej Hopson MD CV ECHO ORDERABLES Final Re sult * COLONOSCOPY FOR RESULT ENTRY ONLY (04/05/2020) Result [facility] Historical Provider HEALTH MAINTENANCE Edited Result - Final * Outside Hepatitis C Virus Screening (09/16/2015) Hepatitis C Screening - External Neg Historical Provider LAB BLOOD ORDERABLES Klaudia l Result from Last 3 Months or Most Recently Relevant to Health Maintenance [place] [address] [place] [address] [facility] [place] [facility] [id number] [place] [address] [facility] [place] [address] [place] [address] [place] [address] [facility] Care Teams Landscape Painter Relationship Specialty Start Date End Date Valerie Lane PA-C [address] [place] [address] [email or web address] PCP - General Physician Glue Sprayer 11/21/24 Bernardo Mena MD [address] [place] [address] [place] [id number] Internal Medicine 04/05/20 Clifton Villalobos MD [address] [place] [address] [email or web address] Insurance Assigned Provider 05/06/25 Additional Source Comments The information contained in this document represents components of the legal health record. It is not the complete legal health record.[facility]
--- OUTSIDE RECORDS SUMMARY | 2025-08-29 06:30 | XMS_ITS | Encounter Summary ---
Author Organization [facility] Address [address] [facility] [address] [place] [address] Phone Care Team Providers Care Lead Level Designer Name Role Phone RajeshBernardo leslie MD Unavailable [phone] Abby Mcgraw Primary Care Provider Armida Linares MD Unavailable Valerie Lane PA-C Primary Care Provider [phone] Clifton Villalobos MD Unavailable Encounter Details Date Type Department Care Team (Late st Contact Info) Description 10/14/2024 Telephone [facility] [address] [place], [place] [phone] Abby Mcgraw FNP [address] [facility] [address] [place] [address] [email or web address] Social History Tobacco Use Types Packs/Day Years [...] high school, GED, job training, learning the Bulgarian language, technical skills, or developing parenting skills)? [...] Description 09/06/2025 8:20 AM EST Office Visit [facility] 22 [facility] 3rd Floor, [address] [place] [address] Ej Hopson MD 22 [facility], [address] [place] [address] 12/15/2025 8:00 AM EDT Office Visit [facility] Internal Medicine 40 [place], [place] [phone] Valerie Lane PA-C 40 [place] [address] documented as of this encounter Visit Diagnoses Not on filedocumented in this encounter Additional Health Concerns Assessment Noted Time PHQ-2 Depression Total Score: 0 07/28/20 24 3:36 PM EDT documented as of this encounter Care Teams Lead Level Designer Relationship Specialty Start Date End Date Abby Mcgraw FNP [address] [facility] [address] [place] [address] PCP - General Nurse Practitioner 12/02/23 11/20/[address] PA-C 40 [place], [place] [phone] PCP - General Physician Ward Maid 11/21/24 Bernardo Mena MD [address] [place] [address] [place] [phone] Internal Medicine 04/05/20 Armida Linares MD [address] [place] [phone] [email or web address] Insurance Assigned Provider 08/06/24 05/06/25 Clifton Villalobos MD [address] [place] [phone] [email or web address] Insurance Assigned Provider 05/06/25 documented as of this encounter Additional Source Comments The information contained in this document represents components of the legal health record. It is not the complete legal health record.[facility]
--- OUTSIDE RECORDS SUMMARY | 2025-08-29 06:30 | XMS_ITS | Encounter Summary ---
Author Organization [facility] Address [address] [facility] [address] [place] [address] Phone Care Team Providers Care Periodicals Clerk Name Role Phone Bernardo Mena MD Unavailable Armida Linares MD Unavailable Valerie Lane PA-C Primary Care Provider Clifton Villalobos MD Unavailable Encounter Details Date Type Department Care Team (Late st Contact Info) Description 12/16/2024 Procedure Pass [facility], Ct Scan - [address] [phone] Social History Tobacco Use Types Packs/Day Years [...] high school, GED, job training, learning the Khmer language, technical skills, or developing parenting skills)? [...] Description 09/06/2025 8:20 AM EST Office Visit [facility] 22 [facility] 3rd Floor, [address] [place] [address] Ej Hopson MD 22 [facility], [address] [place] [address] [email or web address] 12/15/2025 8:00 AM EDT Office Visit [facility] Internal Medicine 40 [place] [address] PA-C 40 [place] [address] [email or web address] documented as of this encounter Visit Diagnoses Not on filedocumented in this encounter Additional Health Concerns Assessment Noted Time PHQ-2 Depression Total Score: 0 12/14/19 9:07 AM EDT documented as of this encounter Care Teams Periodicals Clerk Relationship Specialty Start Date End Date Valerie Lane PA-C 40 [place] [address] [email or web address] PCP - General Physician Resident Associate 11/21/24 Bernardo Mena MD [address] [place] [address] 102 [place] [phone] Internal Medicine 04/05/20 Armida Linares MD 15 [facility] [address] [place] [address] [email or web address] Insurance Assigned Provider 08/06/24 05/06/25 Clifton Villalobos MD 40 [place] [address] Insurance Assigned Provider 05/06/25 documented as of this encounter Additional Source Comments The information contained in this document represents components of the legal health record. It is not the complete legal health record.[facility]
--- OUTSIDE RECORDS SUMMARY | 2025-08-29 06:30 | XMS_ITS | Encounter Summary ---
Author Organization [facility] Address [address] [facility] [address] [place] [address] Phone Care Team Providers Care Hogshead Cooper Name Role Phone Bernardo Mena MD Unavailable Armida Linares MD Unavailable Valerie Lane PA-C Primary Care Provider Clifton Villalobos MD Unavailable Encounter Details Date Type Department Care Team (Late st Contact Info) Description 12/16/2024 Procedure Pass [facility], [address] [place] [address] Social History Tobacco Use Types Packs/Day Years [...] high school, GED, job training, learning the Fijian language, technical skills, or developing parenting skills)? [...] Description 09/06/2025 8:20 AM EST Office Visit [facility] 22 [facility] 3rd Floor, [address] [place] [address] Ej Hopson MD 22 [facility], [address] [place] [address] [email or web address] 12/15/2025 8:00 AM EDT Office Visit [facility] Internal Medicine 40 [place], [place] [phone] Valerie Lane PA-C 40 [place] [address] [email or web address] documented as of this encounter Visit Diagnoses Not on filedocumented in this encounter Additional Health Concerns Assessment Noted Time PHQ-2 Depression Total Score: 0 12/14/19 9:07 AM EDT documented as of this encounter Care Teams Hogshead Cooper Relationship Specialty Start Date End Date Valerie Lane PA-C 40 [place] [address] [email or web address] PCP - General Physician Aquatics Instructor 11/21/24 Bernardo Mena MD [address] [place] [address] 102 [place] [phone] Internal Medicine 04/05/20 Armida Linares MD [address] [facility] [address] [place] [address] [email or web address] Insurance Assigned Provider 08/06/24 05/06/25 Clifton Villalobos MD 40 [place], [place] [phone] Insurance Assigned Provider 05/06/25 documented as of this encounter Additional Source Comments The information contained in this document represents components of the legal health record. It is not the complete legal health record.[facility]
--- OUTSIDE RECORDS SUMMARY | 2025-08-29 06:30 | XMS_ITS | Encounter Summary ---
Author Organization [facility] Address [address] [facility] [address] [place] [address] Phone Care Team Providers Care Principal Archaeologist Name Role Phone Bernardo Mena MD Unavailable [phone] Abby Mcgraw DENTAL APPLIANCE FIXER Primary Care Provider Armida Linares MD Unavailable Valerie Lane PA-C Primary Care Provider [phone] Clifton Villalobos MD Unavailable Encounter Details Date Type Department Care Team (Late st Contact Info) Description 03/11/2024 Procedure Pass [facility], Ct Scan - [address] [address] Social History Tobacco Use Types Packs/Day Years [...] high school, GED, job training, learning the Yakut language, technical skills, or developing parenting skills)? [...] computer) with a working camera? Yes 03/08/2024 Sex and Gender Information Value Date Recorded Sex Assigned at Male 02/13/2018 2:37 PM EDT Legal Sex Male 9:41 PM EDT Gender Identity Male 02/13/2018 2:37 PM EDT Sexual Orientation Straight 02/13/2018 2: 37 PM EDT documented as of this encounter Functional Status * Calculated C-SSRS Risk Score (Lifetime/Recent) Answer Date of Assessment Author No Risk Indicated 03/11/2024 6:30 PM EDT Dulce Maria Zaidi RN * [place] Suicide Severity Rating Scale (Screener/Recent Self-Report) Question Answer Date of Assessment Author 1. Wish to be (Past 1 Month) No 03/11/2024 6:30 PM EDT Dulce Maria Zaidi RN 2. Non-Specific Active Suicidal Thoughts (Past 1 Month) No 03/11/2024 6:30 PM EDT Dulce Maria Zaidi RN 6. Suicidal Behavior (Lifetime) No 03/11/2024 6:30 PM EDT Dulce Maria Zaidi RN documented as of this encounter Plan of Treatment Upcoming Encounters Date Type Department Care Team (Late st Contact Info) Description 09/06/2025 8:20 AM EST Office Visit [facility] 22 [facility] 3rd Floor, [address] [place] [address] Ej Hopson MD 22 [facility], [facility] 301 [place] [address] 12/15/2025 8:00 AM EDT Office Visit [facility] Internal Medicine 40 [place], [place] [phone] Valerie Lane PA-C 40 [place] [address] documented as of this encounter Visit Diagnoses Not on filedocumented in this encounter Additional Health Concerns Assessment Noted Time PHQ-2 Depression Total Score: 0 03/08/20 24 3:12 PM EDT documented as of this encounter Care Teams Principal Archaeologist Relationship Specialty Start Date End Date Abby Mcgraw FNP 15 [facility] [address] [place] [address] PCP - General Nurse Practitioner 12/02/23 11/20/[address] PA-C 40 [place], [place] [phone] PCP - General Physician Metal Tile Setter 11/21/24 Bernardo Mena MD [address] [place] [phone] Internal Medicine 04/05/20 Armida Linares MD [address] [place] [address] [email or web address] Insurance Assigned Provider 08/06/24 05/06/25 Clifton Villalobos MD [address] [place] [phone] [email or web address] Insurance Assigned Provider 05/06/25 documented as of this encounter Additional Source Comments The information contained in this document represents components of the legal health record. It is not the complete legal health record.[facility]
--- OUTSIDE RECORDS SUMMARY | 2025-08-29 06:30 | XMS_ITS | Encounter Summary ---
Author Organization [facility] Address [address] [facility] [address] [place] [address] Phone Care Team Providers Care Warper Creeler Name Role Phone Bernardo Mena MD Unavailable [phone] Armida Linares MD Unavailable Valerie Lane PA-C Primary Care Provider Clifton Villalobos MD Unavailable Encounter Details Date Type Department Care Team (Late st Contact Info) Description 01/06/2025 Procedure Pass [facility] [place] [address] Social History Tobacco Use Types Packs/Day Years [...] Description 09/06/2025 8:20 AM EST Office Visit [facility] 22 [facility] 3rd Floor, [address] [place] [address] Ej Hopson MD 22 [facility], [address] [place] [address] 12/15/2025 8:00 AM EDT Office Visit [facility] Internal Medicine 40 [place] [address] PA-C 40 [place] [address] [email or web address] documented as of this encounter Visit Diagnoses Not on filedocumented in this encounter Additional Health Concerns Assessment Noted Time PHQ-2 Depression Total Score: 0 12/14/19 9:07 AM EDT documented as of this encounter Care Teams Warper Creeler Relationship Specialty Start Date End Date Valerie Lane PA-C 40 [place] [address] [email or web address] PCP - General Physician Performance Improvement Manager 11/21/24 Bernardo Mena MD [address] [place] [phone] Internal Medicine 04/05/20 Armida Linares MD 15 [facility] [address] [place] [address] Insurance Assigned Provider 08/06/24 05/06/25 Clifton Villalobos MD [address] [place] [phone] Insurance Assigned Provider 05/06/25 documented as of this encounter Additional Source Comments The information contained in this document represents components of the legal health record. It is not the complete legal health record.[facility]
--- OUTSIDE RECORDS SUMMARY | 2025-08-29 06:30 | XMS_ITS | Encounter Summary ---
Author Organization [facility] Address [address] [facility] [address] [place] [address] Phone Care Team Providers Care Urologist Md Name Role Phone Bernardo Mena MD Unavailable Armida Linares MD Unavailable Valerie Lane PA-C Primary Care Provider Clifton Villalobos MD Unavailable Encounter Details Date Type Department Care Team (Late st Contact Info) Description 12/21/2024 Procedure Pass [facility] [address] [place] [address] Social History Tobacco Use Types Packs/Day Years [...] high school, GED, job training, learning the Mohawk language, technical skills, or developing parenting skills)? [...] Description 09/06/2025 8:20 AM EST Office Visit [facility] 22 [facility] 3rd Floor, [address] [place] [address] Ej Hopson MD 22 [facility], [address] [place] [address] 12/15/2025 8:00 AM EDT Office Visit [facility] Internal Medicine [address] [place], [place] [phone] Valerie Lane PA-C 40 [place] [address] [email or web address] documented as of this encounter Visit Diagnoses Not on filedocumented in this encounter Additional Health Concerns Assessment Noted Time PHQ-2 Depression Total Score: 0 12/14/19 9:07 AM EDT documented as of this encounter Care Teams Urologist Md Relationship Specialty Start Date End Date Valerie Lane PA-C 40 [place] [address] PCP - General Physician Stitcher Around 11/21/24 Bernardo Mena MD [address] [place] [phone] Internal Medicine 04/05/20 Armida Linares MD 15 [facility] [address] [place] [address] Insurance Assigned Provider 08/06/24 05/06/25 Clifton Villalobos MD [address] [place] [phone] Insurance Assigned Provider 05/06/25 documented as of this encounter Additional Source Comments The information contained in this document represents components of the legal health record. It is not the complete legal health record.[facility]
--- OUTSIDE RECORDS SUMMARY | 2025-08-29 06:30 | XMS_ITS | Encounter Summary ---
Author Organization [facility] Address 399 [facility] [address] [place] [address] Phone Care Team Providers Care Quality Improvement Specialist Name Role Phone Bernardo Mena MD Unavailable Armida Linares MD Unavailable Valerie Lane PA-C Primary Care Provider Clifton Villalobos MD Unavailable Encounter Details Date Type Department Care Team (Late st Contact Info) Description 12/21/2024 Procedure Pass [facility] [address] [place] [address] Social History Tobacco Use Types Packs/Day Years [...] high school, GED, job training, learning the Irish language, technical skills, or developing parenting skills)? [...] Description 09/06/2025 8:20 AM EST Office Visit [facility] 22 [facility] 3rd Floor, [address] [place] [address] Ej Hopson MD 22 [facility], [address] [place] [address] 12/15/2025 8:00 AM EDT Office Visit [facility] Internal Medicine 40 [place] [address] PA-C 40 [place] [address] [email or web address] documented as of this encounter Visit Diagnoses Not on filedocumented in this encounter Additional Health Concerns Assessment Noted Time PHQ-2 Depression Total Score: 0 12/14/19 9:07 AM EDT documented as of this encounter Care Teams Quality Improvement Specialist Relationship Specialty Start Date End Date Valerie Lane PA-C 40 [place] [address] [email or web address] PCP - General Physician Flexographic Press Helper 11/21/24 Bernardo Mena MD [address] [place] [phone] Internal Medicine 04/05/20 Armida Linares MD 15 [facility] [address] [place] [address] Insurance Assigned Provider 08/06/24 05/06/25 Clifton Villalobos MD [address] [place] [phone] Insurance Assigned Provider 05/06/25 documented as of this encounter Additional Source Comments The information contained in this document represents components of the legal health record. It is not the complete legal health record.[facility]
[2025-08-29 07:47] LABS: Alanine Aminotransferase 50 U/L (0-40); Albumin Level 4.7 g/dL (3.5-5.0); Alkaline Phosphatase 96 U/L (39-117); Aspartate Amino Transferase 29 U/L (5-37); Cholesterol 176 mg/dL (<200); HDL Cholesterol 59 mg/dL (>40); Total Protein 7.3 g/dL (6.5-8.0); Triglycerides 69 mg/dL (<150)
[2025-08-29 08:27] LABS: HBS Num1 0.00 mIU/mL (0-7.99); ~Hepatitis B Surface Antibody NONREACTIVE (Nonreactive)
[2025-09-01 06:28] LABS: Quantiferon TB Gold Plus 1 NEGATIVE (NEGATIVE); TB Test (QFT) Mitogen -Nil >10.00 IU/mL; TB Test (QFT) Nil 0.09 IU/mL; TB Test (QFT) Plus TB1 -Nil 0.01 IU/mL; TB Test (QFT) Plus TB2 -Nil <0.00 IU/mL
== END 2025-08-29 06:24 | disposition home or self-care (01) ==
LOC: HO.LAB 06:23
PROVIDERS: Visit Provider Physician Assistant Surgical
DX: L40.0 Psoriasis vulgaris (principal); L40.59 Other psoriatic arthropathy; L40.8 Other psoriasis; Z11.1 Encounter for screening for respiratory tuberculosis
CPT/HCPCS: 36415; 80061; 80076; 86480; 86706

== ENCOUNTER 2025-08-31 06:09 | Outpatient (REF) | payer BC, SELFPAY ==
--- OUTSIDE RECORDS SUMMARY | 2025-05-19 04:10 | XMS_ITS ---
Author Organization [facility] Address [address] [place] [address] Care Team Providers Care Tailor Fitter Name Role Phone BARBARA MARTINS PA-C Primary Care Provider Bernardo Dickinson Jr REASON FOR VISIT screening Encounters Encounter Location Date Provider Diagnosis [facility] [address] [place] [phone] 05/19/2025 Bernardo Mena Jr Plan Of Treatment No Information Progress Notes * NATALIE SHETTYSAIGEDOB: 5 (60 yo M)Acc No.[id number]:05/19/2025 COLON WITH MAC Patient: NATALIE RAMIREZIC Provider: Nereyda Mena MD :1965 A ge:60 Y S ex:Male Date:05/19/2025 Address:[address] [place], [place] [id number] Pcp:BARBARA MARTINS PA-C Subjective: * Chief Complaints: * S creening Billing Information: * Procedure Codes: * The named appointment provid er may or may not be the originator of this progress note, and it is not deemed complete until electronically signed by the appointment provider. Sign off status: Pending * Provider: Nereyda Mena MD Date: 0 05/19/2025 Generated for Cari yeni/Wilfredog/eTransmitting on: 1 11/01/2024 06:13 AM EST
--- OUTSIDE RECORDS SUMMARY | 2025-08-31 06:13 | XMS_ITS | Encounter Summary ---
Author Organization [facility] Address [address] [facility] [address] [place] [address] Phone Care Team Providers Care Color Repairer Name Role Phone RajeshBernardo leslie MD Unavailable Abby Mcgraw Primary Care Provider Armida Linares MD Unavailable Valerie Lane PA-C Primary Care Provider [phone] Clifton Villalobos MD Unavailable Encounter Details Date Type Department Care Team (Late st Contact Info) Description 10/14/2024 Telephone [facility] 234 [place], [place] [address] Abby Mcgraw FNP 15 [facility] [address] [place] [address] [email or web address] Social History Tobacco Use Types Packs/Day Years [...] high school, GED, job training, learning the Slovak language, technical skills, or developing parenting skills)? [...] Description 09/06/2025 8:20 AM EST Office Visit [facility] 22 [facility] 3rd Floor, [address] [place] [address] Ej Hopson MD 22 [facility], [address] [place] [address] 12/15/2025 8:00 AM EDT Office Visit [facility] Internal Medicine 40 [place], [place] [phone] Valerie Lane PA-C 40 [place] [address] documented as of this encounter Visit Diagnoses Not on filedocumented in this encounter Additional Health Concerns Assessment Noted Time PHQ-2 Depression Total Score: 0 07/28/20 24 3:36 PM EDT documented as of this encounter Care Teams Color Repairer Relationship Specialty Start Date End Date Abby Mcgraw FNP [address] [facility] [address] [place] [address] PCP - General Nurse Practitioner 12/02/23 11/20/[address] PA-C 40 [place], [place] [phone] PCP - General Physician Director Of Recruitment 11/21/24 Bernardo Mena MD [address] [place] [address] [place] [phone] Internal Medicine 04/05/20 Armida Linares MD [address] [place] [address] [email or web address] Insurance Assigned Provider 08/06/24 05/06/25 Clifton Villalobos MD [address] [place] [address] [email or web address] Insurance Assigned Provider 05/06/25 documented as of this encounter Additional Source Comments The information contained in this document represents components of the legal health record. It is not the complete legal health record.[facility]
--- OUTSIDE RECORDS SUMMARY | 2025-08-31 06:13 | XMS_ITS | Encounter Summary ---
Author Organization [facility] Address [address] [facility] [address] [place] [address] Phone Care Team Providers Care Fence Repairman Name Role Phone Bernardo Mena MD Unavailable Armida Linares MD Unavailable Valerie Lane PA-C Primary Care Provider Clifton Villalobos MD Unavailable Encounter Details Date Type Department Care Team (Late st Contact Info) Description 01/06/2025 Procedure Pass [facility] [place] [place] [address] Social History Tobacco Use Types Packs/Day Years [...] high school, GED, job training, learning the Malay language, technical skills, or developing parenting skills)? [...] Description 09/06/2025 8:20 AM EST Office Visit [facility] 22 [facility] 3rd Floor, [address] [place] [address] Ej Hopson MD 22 [facility], [address] [place] [address] 12/15/2025 8:00 AM EDT Office Visit [facility] Internal Medicine [address] [place] [address] PA-C 40 [place] [address] [email or web address] documented as of this encounter Visit Diagnoses Not on filedocumented in this encounter Additional Health Concerns Assessment Noted Time PHQ-2 Depression Total Score: 0 12/14/19 9:07 AM EDT documented as of this encounter Care Teams Fence Repairman Relationship Specialty Start Date End Date Valerie Lane PA-C 40 [place] [address] [email or web address] PCP - General Physician Duplex Trimmer 11/21/24 Bernardo Mena MD [address] [place] [phone] Internal Medicine 04/05/20 Armida Linares MD 15 [facility] [address] [place] [address] Insurance Assigned Provider 08/06/24 05/06/25 Clifton Villalobos MD [address] [place] [phone] Insurance Assigned Provider 05/06/25 documented as of this encounter Additional Source Comments The information contained in this document represents components of the legal health record. It is not the complete legal health record.[facility]
--- OUTSIDE RECORDS SUMMARY | 2025-08-31 06:13 | XMS_ITS | Encounter Summary ---
Author Organization [facility] Address [address] [facility] [address] [place] [address] Phone Care Team Providers Care Account Underwriter Name Role Phone Bernardo Mena MD Unavailable Armida Linares MD Unavailable Valerie Lane PA-C Primary Care Provider Clifton Villalobos MD Unavailable Encounter Details Date Type Department Care Team (Late st Contact Info) Description 12/16/2024 Procedure Pass [facility], [address] [place] [address] Social History Tobacco Use Types Packs/Day Years [...] high school, GED, job training, learning the Ecuadorean language, technical skills, or developing parenting skills)? [...] Description 09/06/2025 8:20 AM EST Office Visit [facility] 22 [facility] 3rd Floor, [address] [place] [address] Ej Hopson MD 22 [facility], [address] [place] [address] [email or web address] 12/15/2025 8:00 AM EDT Office Visit [facility] Internal Medicine 40 [place], [place] [phone] Valerie Lane PA-C 40 [place] [address] [email or web address] documented as of this encounter Visit Diagnoses Not on filedocumented in this encounter Additional Health Concerns Assessment Noted Time PHQ-2 Depression Total Score: 0 12/14/19 9:07 AM EDT documented as of this encounter Care Teams Account Underwriter Relationship Specialty Start Date End Date Valerie Lane PA-C 40 [place] [address] [email or web address] PCP - General Physician Geotechnical Department Manager 11/21/24 Bernardo Mena MD [address] [place] [address] 102 [place] [phone] Internal Medicine 04/05/20 Armida Linares MD 15 [facility] [address] [place] [address] [email or web address] Insurance Assigned Provider 08/06/24 05/06/25 Clifton Villalobos MD 40 [place], [place] [phone] Insurance Assigned Provider 05/06/25 documented as of this encounter Additional Source Comments The information contained in this document represents components of the legal health record. It is not the complete legal health record.[facility]
--- OUTSIDE RECORDS SUMMARY | 2025-08-31 06:13 | XMS_ITS | Encounter Summary ---
Author Organization [facility] Address [address] [facility] [address] [place] [address] Phone Care Team Providers Care Ditch Inspector Name Role Phone Bernardo Mena MD Unavailable Armida Linares MD Unavailable Valerie Lane PA-C Primary Care Provider [phone] Clifton Villalobos MD Unavailable Encounter Details Date Type Department Care Team (Late st Contact Info) Description 12/16/2024 Procedure Pass [facility], Ct Scan - [address] [id number] Social History Tobacco Use Types Packs/Day Years [...] high school, GED, job training, learning the Belarusian language, technical skills, or developing parenting skills)? [...] Description 09/06/2025 8:20 AM EST Office Visit [facility] [address] [facility] 3rd Floor, [address] [place] [address] Ej Hopson MD [address] [facility], [address] [place] [address] [email or web address] 12/15/2025 8:00 AM EDT Office Visit [facility] Internal Medicine 40 [place] [address] PA-C 40 [place] [address] [email or web address] documented as of this encounter Visit Diagnoses Not on filedocumented in this encounter Additional Health Concerns Assessment Noted Time PHQ-2 Depression Total Score: 0 12/14/19 9:07 AM EDT documented as of this encounter Care Teams Ditch Inspector Relationship Specialty Start Date End Date Valerie Lane PA-C 40 [place] [address] [email or web address] PCP - General Physician An/Syq 13 Nav/C2 Operator 11/21/24 Bernardo Mena MD [address] [place] [address] 102 [place] [address] Internal Medicine 04/05/20 Armida Linares MD [address] [facility] [address] [place] [address] [email or web address] Insurance Assigned Provider 08/06/24 05/06/25 Clifton Villalobos MD 40 [place] [address] Insurance Assigned Provider 05/06/25 documented as of this encounter Additional Source Comments The information contained in this document represents components of the legal health record. It is not the complete legal health record.[facility]
--- OUTSIDE RECORDS SUMMARY | 2025-08-31 06:13 | XMS_ITS | Patient Health Record ---
Author [facility] Address [address] [place] [address] Care Team Providers Care Scale Model Maker Name Role Phone Bharti Merrill NP Primary Care Provider Brock Lopez Unavailable [phone] Reason For Referral No Information Medications Medication [...] Status Risk Notes Problem Acquired hallux valgus (66207565) Hallux valgus (acquired), right foot (M20.11) Active confirmed Plan Of Treatment Pending Test Test Name Order Date , [id number]/INJECT, JOINT/BURSA 0 03/30/2018 Insurance Providers Payer Name Payer Address Payer Phone Subscriber Number Group Number Insured Name Patient Relationship to Insured Coverage Start Date Coverage End Date [facility] All Others [address] [place] [address] [phone] [id number] Adarsh Marrero Self - patient is the insured Medical (General) History Surgical History Surgery Date(Month/Year) gall bladder 2013 Hospitalization History Reason Date(Month/Year) Josefina Ashford for kidney stones 8
--- OUTSIDE RECORDS SUMMARY | 2025-08-31 06:13 | XMS_ITS | Encounter Summary ---
Author Organization [facility] Address [address] [facility] [address] [place] [address] Phone Care Team Providers Care Rim Technician Name Role Phone Bernardo Mena MD Unavailable Abby Mcgraw Primary Care Provider Armida Linares MD Unavailable Valerie Lane PA-C Primary Care Provider [phone] Clifton Villalobos MD Unavailable Reason for Referral * Consultation (Routine) - New Request Specialty Diagnoses / Procedures Referred By Johny lema Referred To Contact Diagnoses Low back pain Lulu Gray, SYDNIE Phone: tel: fax: [email or web address] Referral ID Status Reason Start Date Expiration Date V isits Requested Visits Authorized [id number] New Request 10/14/2024 10/14/2025 1 1 Reason for Visit * Reason Onset Date Comments Triage 10/14/2024 Back pain Encounter Details Date Type Department Care Team (Late st Contact Info) Description 10/14/2024 Nurse Triage [facility] [address] [place] [address] Abby Mcgraw FNP [address] [facility] [address] [place], [place] [phone] Triage (Back pain) Social History Tobacco Use [...] high school, GED, job training, learning the Finnish language, technical skills, or developing parenting skills)? [...] for review and signature as appropriate. To SWING TYPE LATHE OPERATOR Marina * Magda Mederos - 10/14/2024 10:38 AM EST [facility] Top Smart Phrases: Yellow Call Intake Call Back Number: (if not patient, name/relationship) [phone] Yellow Symptom: Back pain When did these symptoms start? Thursday Have you ever experienced these symptoms before? YES Any additional information: Reoccuring issue arthritis in spine.asking about referral to speacilist Route Normal Priority Encounter to tax assistant Reason for Call = TRIAGE Comment = [...] Description 09/06/2025 8:20 AM EST Office Visit [facility] [address] [facility] 3rd Floor, [address] [place] [address] Ej Hopson MD [address] [facility], [address] [place] [address] [email or web address] 12/15/2025 8:00 AM EDT Office Visit [facility] Internal Medicine 40 [place], [place] [phone] Valerie Lane PA-C 40 [place] [address] [email or web address] Scheduled Referrals Name Type Priority Associated Diagnoses Order Schedule Ambulatory referral to [facility] - Employed Practices Outpatient Referral Routine Low back pain Ordered: 10/14/2024 documented as of this encounter Visit Diagnoses Diagnosis Low back pain- Primary Lumbago documented in this encounter Additional Health Concerns Assessment Noted Time PHQ-2 Depression Total Score: 0 07/28/20 24 3:36 PM EDT documented as of this encounter Care Teams Rim Technician Relationship Specialty Start Date End Date Abby Mcgraw FNP [address] [facility] [address] [place] [address] PCP - General Nurse Practitioner 12/02/23 11/20/[address] PA-C 40 [place] [address] PCP - General Physician Sales Administration Specialist 11/21/24 Bernardo Mena MD [address] [place] [address] [address] [place] [address] Internal Medicine 04/05/20 Armida Linares MD [address] [place] [address] [email or web address] Insurance Assigned Provider 08/06/24 05/06/25 Clifton Villalobos MD [address] [place] [address] [email or web address] Insurance Assigned Provider 05/06/25 documented as of this encounter Additional Source Comments The information contained in this document represents components of the legal health record. It is not the complete legal health record.[facility]
--- OUTSIDE RECORDS SUMMARY | 2025-08-31 06:13 | XMS_ITS | Patient Health Record ---
Author Organization [facility] Address [address] [place] [address] Care Team Providers Care Safety And Security Manager Name Role Phone BARBARA MARTINS PA-C Primary Care Provider Bernardo Dickinson Jr Unavailable [phone] Allergies No Known Allergies Reason For Referral Referring Provider First Name Clifton Referring Provider Last Name Griselda Referring Provider Speciality Internal M edicine Referred Organization [facility] Referred Provider Bernardo Mena Jr Referred Address [address] [facility],[place], [place],[address], Referred Provider Specialty Gastroentero logy General Notes [...] Duration) Notes Start Date End Date Status Aspirin 325 MG Tablet TAKE ONE TABLET BY MOUTH EVERY DAY Oral; Duration: 30 Days Active Aspir-Low 81 MG Tablet Delayed Release 1 tablet Orally Once a day Active Simvastatin 40 MG Tablet TAKE 1 TABLET B Y MOUTH NIGHTLY AT BEDTIME Oral; Duration: 60 Days Active Clopidogrel Bisulfate 75 MG Tablet TAKE ONE TABLET BY MOUTH EVERY DAY Oral; Duration: 21 Days Active Cholesterol Fighter Active Diclofenac Sodium 50 MG Tablet Delayed Release TAKE ONE TABLET BY MOUTH TWICE A DAY NEEDED FOR ARTHRITIC PAIN Oral; Duration: 15 Days Active Vitamin B12 500 MCG Tablet 1 tablet Oral ly Once a day; Duration: 30 day(s) Active Meloxicam 7.5 MG Tablet Oral; Duration: 30 Days Active Magnesium 300 MG Capsule 1 capsule with a meal Orally Once a day; Duration: 30 day(s) Active Calcipotriene 0.005 % Cream APPLY TWO TI MES A DAY TO AFFECTED AREAS OF GROIN AND EXTREMITIES; USE IN CONJUNCTION WITH HALOBETASOL AND DURING BREAKS FROM HALOBETASOL External; Duration: 30 Days Active Metoprolol Tartrate 25 MG Tablet TAKE ONE TABLET BY MOUTH TWICE A DAY Oral; Duration: 30 Days Active Atorvastatin Calcium 40 MG Tablet Oral; Duration: 30 Days Acti ve Halobetasol Propionate 0.05 % Cream APPLY THIN LAYER TWICE A DAY TO PSORIASIS ON LEGS FOR 2 WEEKS ON, 1 WEEK OFF; REPEAT NEEDED; USE IN CONJUNCTION WITH CALCIPOTRIENE. External; Duration: 30 Days Active Immunizations Vaccine Route Administration Date Status Comme nts Influenza Unknown 12/22/2019 Refused Influenza Unknown 04/03/2025 Refused Social History Tobacco Use: Social History Observation Description Date Details (start date - stop date) Never Smoker NA - NA Social History Drugs/Alcohol: Social Info Question Answer Notes Alcohol Screen Did you have a drink containing alcohol in the past year? Yes How often did you have a drink containing alcohol in the past year? 2 to 3 times a week (3 points) How many drinks did you have on a typical day when you were drinking in the past year? 3 or 4 drinks (1 point) How often did you have 6 or more drinks on one occasion in the past year? Less than monthly (1 point) Points 5 Interpretation Positive Tobacco Use: Social Info Question Answer Notes Tobacco Use/Smoking Patient is a nonsmoker Additional Details Category Social Info Options Details Miscellaneous: Marital status: Occupation: isabel Problems Problem Type SNOMED Code ICD Code Onset Dates Problem Status W/U Status Risk Notes Problem Colon cancer screening (932302362) Colon cancer screening (Z12.11) Active confirmed Problem Pre-procedure evaluation check (946429595) Encounter for other preprocedural examination (Z01.818) Active confirmed Problem Long-term current use of antiplatelet drug (051891893313285 ) Long-term use of aspirin therapy (Z79.82) Active confirmed Vital Signs Temperature 97.7 degrees Fahrenheit 04/03/2025 Blood pressure diastolic 01 mm Hg 04/03/2025 Height 70 in 04/03/2025 Blood pressure systolic 001 mm Hg 04/03/2025 Weight 194.6 lbs 04/03/2025 BMI 27.92 kg/m2 04/03/2025 Encounters Encounter Location Date Provider Diagnosis [facility] Outpatient [address] [place], [place] [phone] 05/19/2025 Bernardo Mena Jr [facility] [address] [place] [phone] 04/03/2025 Bernardo Mena Jr Colon cancer screening Z12.11 ; Encounter for other preprocedural examination Z01.818 and Long-term use of aspirin therapy Z79.82 [facility] [address] [place] [phone] 02/28/2025 Bernardo Mena Jr [facility] [address] [place] [phone] 05/11/2025 Bernardo Mena Jr Assessments Encounter Date Diagnosis (ICD Code) Assessment Notes Treatment Notes Treatment Clinical Notes Section Notes 04/03/2025 Colon cancer screening (ICD-10 - Z12.11) Stop aspirin 1 week before colonosopy. Risks and benefits are discussed. 04/03/2025 Encounter for other preprocedural examination (ICD-10 - Z01.818) Stop aspirin 1 week before colonosopy. Risks and benefits are discussed. 04/03/2025 Long-term use of aspirin therapy (ICD-10 - Z79.82) Stop aspirin 1 week before colonosopy. Risks and benefits are discussed. Plan Of Treatment Future Test Test Name Order Date COLONOSCOPY 12/22/2019 COLONOSCOPY 04/03/2025 Insurance Providers Payer Name Payer Address Payer Phone Subscriber Number Group Number Insured Name Patient Relationship to Insured Coverage Start Date Coverage End Date [facility] Virtual [employer]-D [employer] for [employer] PROFESSIONAL CLAIMS [address] [place] [address] [id number] RAKEL SHAH Self - patient is the insured Medical (General) History Medical History History ICD Code elevated cholesterol stroke small in december 2024 Surgical History Surgery Date(Month/Year) cholecystectomy heart monitor 12/20
--- OUTSIDE RECORDS SUMMARY | 2025-08-31 06:13 | XMS_ITS | Clinical Summary ---
Author Organization [facility] Address [address] [address] Phone Care Team Providers Care Security System Analyst Name Role Phone Bernardo Mena MD Unavailable Valerie Lane PA-C Primary Care [...] duration of 21 days. A referral to [facility] has been made for further evaluation [...] If all imaging negative, will refer to [facility] orthopedics. Patient notes understanding and is appreciated. Encounters Date Type Department Care Team Description 07/07/2025 7:17 AM EDT - 07/07/2025 11:59 PM EDT Hospital Encounter [facility] [address] [place] [address] Ej Hopson MD Discharge Disposition: Home or Self Care 06/28/2025 Telephone [facility] [address] [place] [address] PA-C Change cholesterol medication 01/06/2025 Procedure Pass [facility] [address] [place] [address] from Last 3 Months Immunizations Immunization Administration [...] high school, GED, job training, learning the Micronesian language, technical skills, or developing parenting skills)? 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 COLONOSCOPY FOR RESULT [...] COLONOSCOPY FOR RESULT ENTRY ONLY (04/05/2020) Result [facility] Historical Provider HEALTH MAINTENANCE Edited Result - Final * Outside Hepatitis C Virus Screening (09/16/2015) Hepatitis C Screening - External Neg Historical Provider LAB BLOOD ORDERABLES Klaudia l Result from Last 3 Months or Most Recently Relevant to Health Maintenance [place] [address] [place] [address] [facility] [place] Address: [facility] [id number] [place] [address] [facility] [address] [address] [place] [address] [facility] [place] Care Teams Security System Analyst Relationship Specialty Start Date End Date Valerie Lane PA-C 40 [place] [address] [email or web address] PCP - General Physician Senior Controls Engineer 11/21/24 Bernardo Mena MD [address] [place] [address] [place] [phone] Internal Medicine 04/05/20 Clifton Villalobos MD [address] [place] [address] [email or web address] Insurance Assigned Provider 05/06/25 Additional Source Comments The information contained in this document represents components of the legal health record. It is not the complete legal health record.[facility]
--- OUTSIDE RECORDS SUMMARY | 2025-08-31 06:13 | XMS_ITS | Encounter Summary ---
Author Organization [facility] Address [address] [facility] [address] [place] [address] Phone Care Team Providers Care Supervisor Orchard Name Role Phone Bernardo Mena MD Unavailable Armida Linares MD Unavailable Valerie Lane PA-C Primary Care Provider Clifton Villalobos MD Unavailable Encounter Details Date Type Department Care Team (Late st Contact Info) Description 12/21/2024 Procedure Pass [facility] [address] [place] [address] Social History Tobacco Use Types Packs/Day Years [...] high school, GED, job training, learning the Albanian language, technical skills, or developing parenting skills)? [...] Description 09/06/2025 8:20 AM EST Office Visit [facility] [address] [facility] 3rd Floor, [address] [place] [address] Ej Hopson MD [address] [facility], [address] [place] [address] 12/15/2025 8:00 AM EDT Office Visit [facility] Internal Medicine [address] [place] [address] PA-C 40 [place] [address] [email or web address] documented as of this encounter Visit Diagnoses Not on filedocumented in this encounter Additional Health Concerns Assessment Noted Time PHQ-2 Depression Total Score: 0 12/14/19 9:07 AM EDT documented as of this encounter Care Teams Supervisor Orchard Relationship Specialty Start Date End Date Valerie Lane PA-C 40 [place] [address] [email or web address] PCP - General Physician Scrap Burner 11/21/24 Bernardo Mena MD [address] [place] [phone] Internal Medicine 04/05/20 Armida Linares MD [address] [facility] [address] [place] [address] Insurance Assigned Provider 08/06/24 05/06/25 Clifton Villalobos MD [address] [place] [address] Insurance Assigned Provider 05/06/25 documented as of this encounter Additional Source Comments The information contained in this document represents components of the legal health record. It is not the complete legal health record.[facility]
--- OUTSIDE RECORDS SUMMARY | 2025-08-31 06:13 | XMS_ITS | Encounter Summary ---
Author Organization [facility] Address [address] [facility] [address] [place] [address] Phone Care Team Providers Care In Home Baby Sitter Name Role Phone Bernardo Mena MD Unavailable Abby Mcgraw WELDER APPRENTICE COMBINATION Primary Care Provider Armida Linares MD Unavailable Valerie Lane PA-C Primary Care Provider [phone] Clifton Villalobos MD Unavailable Encounter Details Date Type Department Care Team (Late st Contact Info) Description 03/11/2024 Procedure Pass [facility], Ct Scan - [address] [address] Social History Tobacco Use Types Packs/Day Years [...] high school, GED, job training, learning the Portuguese language, technical skills, or developing parenting skills)? [...] PM EDT Dulce Maria Zaidi RN * [place] Suicide Severity Rating Scale (Screener/Recent Self-Report) Question [...] Description 09/06/2025 8:20 AM EST Office Visit [facility] 22 [facility] 3rd Floor, [address] [place] [address] Ej Hopson MD [address] [facility] 301 [place] [address] 12/15/2025 8:00 AM EDT Office Visit [facility] Internal Medicine 40 [place], [place] [phone] Valerie Lane PA-C 40 [place] [address] documented as of this encounter Visit Diagnoses Not on filedocumented in this encounter Additional Health Concerns Assessment Noted Time PHQ-2 Depression Total Score: 0 03/08/20 24 3:12 PM EDT documented as of this encounter Care Teams In Home Baby Sitter Relationship Specialty Start Date End Date Abby Mcgraw FNP [address] [facility] [address] [place] [address] PCP - General Nurse Practitioner 12/02/23 11/20/[address] PA-C 40 [place], [place] [phone] PCP - General Physician Senior Stereo Compiler Team Lead 11/21/24 Bernardo Mena MD [address] [place] [phone] Internal Medicine 04/05/20 Armida Linares MD [address] [place] [address] [email or web address] Insurance Assigned Provider 08/06/24 05/06/25 Clifton Villalobos MD [address] [place] [address] [email or web address] Insurance Assigned Provider 05/06/25 documented as of this encounter Additional Source Comments The information contained in this document represents components of the legal health record. It is not the complete legal health record.[facility]
--- OUTSIDE RECORDS SUMMARY | 2025-08-31 06:13 | XMS_ITS | Encounter Summary ---
Author Organization [facility] Address [address] [facility] [address] [place] [address] Phone Care Team Providers Care Cinema Operator Name Role Phone Jaspreet Hoover MD Unavailable Candace Dietrich NP Unavailable [phone] Bharti Merrill TILT WALL SUPERVISOR Unavailable [phone] Adarsh Ruiz MD Unavailable [phone] Bharti Merrill TILT WALL SUPERVISOR Primary Care Provider Bernardo Mena MD Unavailable Abby Mcgraw AUTOMOTIVE BRAKE TECHNICIAN Primary Care Provider [phone] Armida Linares MD Unavailable Valerie Lane PA-C Primary Care Provider Clifton Villalobos MD Unavailable Encounter Details Date Type Department Care Team (Late st Contact Info) Description 02/13/2018 Procedure Pass [facility], Ct Scan - [address] [address] Social History Tobacco Use Types Packs/Day Years [...] Description 09/06/2025 8:20 AM EST Office Visit [facility] 22 [facility] 3rd Floor, [address] [place] [address] Ej Hopson MD 22 [facility], [address] [address] 12/15/2025 8:00 AM EDT Office Visit [facility] Internal Medicine [address] [place] [address] PA-C 40 [place] [address] documented as of this encounter Visit Diagnoses Not on filedocumented in this encounter Additional Health Concerns Assessment Noted Time PHQ-2 Depression Total Score: 0 02/09/20 18 2:28 PM EDT documented as of this encounter Care Teams Cinema Operator Relationship Specialty Start Date End Date Bharti Merrill NP [address] [place] [address] PCP - General Family Medicine 02/12/18 12/01/23 Abby Mcgraw FNP 15 [facility] [address] [place] [address] PCP - General Nurse Practitioner 12/02/23 11/20/[address] PA-C 40 [place] [address] PCP - General Physician Motor Vehicle Parts Interpreter 11/21/24 Jaspreet Hoover MD 40 [place] [address] Historical LMR Provider 07/16/17 04/04/20 Candace Dietrich, SYDNIE 21 [facility] 104 [place] [address] Historical LMR Provider 07/16/17 0 Bharti Merrill NP 26 [facility] 6 [place] [address] Historical LMR Provider 07/16/17 04/04/20 Adarsh Ruiz MD [address] [place] [address] Historical LMR Provider 07/16/17 0 Bernardo Mena MD [address] [place] [address] 102 [place] [phone] Internal Medicine 04/05/20 Armida Linares MD 15 [facility] 201 [place] [address] Insurance Assigned Provider 08/06/24 05/06/25 Clifton Villalobos MD 40 [place] [address] Insurance Assigned Provider 05/06/25 documented as of this encounter Additional Source Comments The information contained in this document represents components of the legal health record. It is not the complete legal health record.[facility]
--- OUTSIDE RECORDS SUMMARY | 2025-08-31 06:13 | XMS_ITS | Encounter Summary ---
Author Organization [facility] Address [address] [place] [phone] Phone Care Team Providers Care School Admissions Representative Name Role Phone Bernardo Mena MD Unavailable Armida Linares MD Unavailable Valerie Lane PA-C Primary Care Provider [phone] Clifton Villalobos MD Unavailable Encounter Details Date Type Department Care Team (Late st Contact Info) Description 12/21/2024 Procedure Pass Non-Invasive Cardiology [address] [place] [address] Social History Tobacco Use Types Packs/Day Years [...] high school, GED, job training, learning the Yoruba language, technical skills, or developing parenting skills)? [...] Description 09/06/2025 8:20 AM EST Office Visit [facility] [address] [facility] [address], [address] [place] [address] Ej Hopson MD [address] [facility], [address] [place] [address] 12/15/2025 8:00 AM EDT Office Visit [facility] Internal Medicine [address] [place], [place] [phone]erie [address] PA-C [address] [place] [address] [email or web address] documented as of this encounter Visit Diagnoses Not on filedocumented in this encounter Additional Health Concerns Assessment Noted Time PHQ-2 Depression Total Score: 0 12/14/19 9:07 AM EDT documented as of this encounter Care Teams School Admissions Representative Relationship Specialty Start Date End Date Valerie Lane PA-C [address] [place] [address] PCP - General Physician [employer] Lead Man 11/21/24 Bernardo Mena MD [address] [place] [address] [phone] Internal Medicine 04/05/20 Armida Linares MD [address] [facility] [address] [place] [address] Insurance Assigned Provider 08/06/24 05/06/25 Clifton Villalobos MD [address] [place] [address] [phone] Insurance Assigned Provider 05/06/25 documented as of this encounter Additional Source Comments The information contained in this document represents components of the legal health record. It is not the complete legal health record.[facility]
[2025-08-31 07:40] LABS: Alanine Aminotransferase 43 U/L (0-40); Albumin Level 4.7 g/dL (3.5-5.0); Alkaline Phosphatase 93 U/L (39-117); Anion Gap 12 (12-20); Aspartate Amino Transferase 21 U/L (5-37); Blood Urea Nitrogen 24 mg/dL (9-16); Calcium 9.3 mg/dL (8.4-10.2); Carbon Dioxide 26 mmol/L (22-29); Chloride 108 mmol/L (96-108); Cholesterol 176 mg/dL (<200); Estimated Glomerular Filt Rate > 60; HDL Cholesterol 55 mg/dL (>40); Potassium 4.4 mmol/L (3.3-5.1); Sodium 142 mmol/L (135-145); Total Protein 7.2 g/dL (6.5-8.0); Triglycerides 61 mg/dL (<150)
== END 2025-08-31 06:10 | disposition home or self-care (01) ==
LOC: HO.LAB 06:09
PROVIDERS: Visit Provider Internal Medicine Cardiovascular Disease
DX: I25.10 Atherosclerotic heart disease of native coronary artery without angina pectoris (principal); I63.322 Cerebral infarction due to thrombosis of left anterior cerebral artery; E78.49 Other hyperlipidemia
CPT/HCPCS: 36415; 80053; 80061